=== PATIENT | male | born 1965 | race Caucasian/White ===

== ENCOUNTER 2016-12-25 17:15 | Emergency (ER) | payer SELFPAY ==
[~2016-12-25] VITALS: Ht 185.4 cm; Wt 70.0 kg
[~2016-12-25 17:15] MED LIST: ROBITUSSIN AC10 ML PO; ZITHROMAX250 MG PO
[2016-12-25] MEDS ORDERED: PERCOCET 5/325M1 TAB PO (17:32)
[2016-12-25] MEDS ORDERED: MOTRIN800 MG PO (17:32)
[2016-12-25] MEDS ORDERED: ZOFRAN ODT4 MG PO (17:32)
[2016-12-25] MEDS ORDERED: PENICILLN VK500 MG PO (17:32)
[2016-12-25 17:52] VITALS: BP 126/70
== END 2016-12-25 17:55 | disposition home or self-care (01) | DRG 159 ==
LOC: ED 17:15
DX: K02.9 Dental caries, unspecified (principal); F17.210 Nicotine dependence, cigarettes, uncomplicated

== ENCOUNTER 2018-03-07 09:24 | Emergency (ER) | payer BC ==
[~2018-03-07] VITALS: Ht 185.4 cm; Wt 77.0 kg
[~2018-03-07 09:24] MED LIST changes: +MOTRIN800 MG PO; +PENICILLN VK500 MG PO; +PERCOCET 5/325M1 TAB PO; +ZOFRAN ODT4 MG PO
[2018-03-07] MEDS ORDERED: ASPERCREME LIDOCA41 TOP (09:59)
[2018-03-07] MEDS ORDERED: MOTRIN400 MG PO (09:59)
[2018-03-07] MEDS ORDERED: VOLTAREN1%GEL TOP (09:59)
[2018-03-07 10:01] VITALS: BP 111/70
== END 2018-03-07 10:05 | disposition home or self-care (01) | DRG 552 ==
LOC: ED 09:24
DX: M62.830 Muscle spasm of back (principal); F17.210 Nicotine dependence, cigarettes, uncomplicated

== ENCOUNTER → 2018-03-24 | Outpatient (REF) | payer BC ==
[~2018-03-24] VITALS: Ht 185.4 cm; Wt 77.1 kg
[~2018-03-24] MED LIST changes: +ASPERCREME LIDOCA41 TOP; +MOTRIN400 MG PO; +VOLTAREN1%GEL TOP
[2018-03-24 09:42] VITALS: BP 104/65
== END | disposition home or self-care (01) | DRG 951 ==
LOC: PO 08:54 → ORM 09:15
PROVIDERS: ATTEND Internal Medicine Gastroenterology
DX: Z01.818 Encounter for other preprocedural examination (principal); Z12.11 Encounter for screening for malignant neoplasm of colon; Z98.890 Other specified postprocedural states; F17.210 Nicotine dependence, cigarettes, uncomplicated; Z97.2 Presence of dental prosthetic device (complete) (partial)

== ENCOUNTER 2018-03-25 09:47 | Day surgery (SDC) | payer BC ==
[2018-03-25 12:05] VITALS: BP 90/69
== END 2018-03-25 12:15 | disposition home or self-care (01) | DRG 951 ==
LOC: ENDO 09:47
PROVIDERS: ATTEND Internal Medicine Gastroenterology
PROC: 0DBP8ZX Excision of Rectum, Via Natural or Artificial Opening Endoscopic, Diagnostic (ICD-10-PCS; principal; 2018-03-25)
PROC: 0DBL8ZX Excision of Transverse Colon, Via Natural or Artificial Opening Endoscopic, Diagnostic (ICD-10-PCS; 2018-03-25)
PROC: 0DBN8ZX Excision of Sigmoid Colon, Via Natural or Artificial Opening Endoscopic, Diagnostic (ICD-10-PCS; 2018-03-25)
DX: Z12.11 Encounter for screening for malignant neoplasm of colon (principal); D12.5 Benign neoplasm of sigmoid colon; D12.3 Benign neoplasm of transverse colon; D12.8 Benign neoplasm of rectum; K64.4 Residual hemorrhoidal skin tags; K64.8 Other hemorrhoids; K21.9 Gastro-esophageal reflux disease without esophagitis

== ENCOUNTER 2018-05-20 08:42 | Day surgery (SDC) | payer BC ==
[~2018-05-20] VITALS: Ht 185.4 cm; Wt 78.9 kg
[2018-05-20 12:11] VITALS: BP 112/66
== END 2018-05-20 12:18 | disposition home or self-care (01) | DRG 384 ==
LOC: ENDO 08:42 → ORM 11:45 → ENDO 11:45
PROVIDERS: ATTEND Internal Medicine Gastroenterology
PROC: 0DB48ZX Excision of Esophagogastric Junction, Via Natural or Artificial Opening Endoscopic, Diagnostic (ICD-10-PCS; principal; 2018-05-20)
PROC: 0DB78ZX Excision of Stomach, Pylorus, Via Natural or Artificial Opening Endoscopic, Diagnostic (ICD-10-PCS; 2018-05-20)
PROC: 0DB58ZX Excision of Esophagus, Via Natural or Artificial Opening Endoscopic, Diagnostic (ICD-10-PCS; 2018-05-20)
DX: K25.9 Gastric ulcer, unspecified as acute or chronic, without hemorrhage or perforation (principal); K21.9 Gastro-esophageal reflux disease without esophagitis; K22.8 Other specified diseases of esophagus; K29.70 Gastritis, unspecified, without bleeding; Q40.2 Other specified congenital malformations of stomach; F17.200 Nicotine dependence, unspecified, uncomplicated; K64.8 Other hemorrhoids; Z79.899 Other long term (current) drug therapy; Z86.010 Personal history of colon polyps

== ENCOUNTER → 2018-08-23 | Outpatient (REF) | payer BC | END | disposition home or self-care (01) | DRG 552 | LOC: DI 08:33 | PROVIDERS: ATTEND Internal Medicine | DX: M48.061 Spinal stenosis, lumbar region without neurogenic claudication (principal) ==

== ENCOUNTER 2023-08-14 14:37 | Emergency (ER) | payer OTHER ==
[~2023-08-14] VITALS: Ht 185.4 cm; Wt 82.1 kg
[2023-08-14] MEDS ORDERED: PAXLOVID PO (15:05)
[2023-08-14] MEDS ORDERED: KETOROLAC TROMETHAMINE 30 MG/ML SDV IV ONE (15:45)
[2023-08-14] MEDS ORDERED: SODIUM CHLORIDE 0.9% 1,000 ML IV ONE (15:45)
[2023-08-14 16:09] LABS: URINE BILIRUBIN - DIPSTICK Negative (NEGATIVE); URINE BLOOD DIPSTICK Trace-intact (NEGATIVE); URINE COLOR Orange; URINE GLUCOSE - DIPSTICK 100 mg/dL (NEGATIVE); URINE KETONE Negative (NEGATIVE); URINE LEUK ESTERASE Negative (NEGATIVE); URINE NITRITE - DIPSTICK Positive (Negative); URINE PROTEIN - DIPSTICK 30 mg/dL (NEG-TRACE)
[2023-08-14 16:09] LABS: BASO% 0.2 % (0-3); HEMATOCRIT 42.5 % (39.0-50.0); HEMOGLOBIN 14.2 g/dl (14.0-18.0); IMMATURE GRANULOCYTES 0.7 % (0.0-5.0); LYMPH% 26.4 % (15-41); MEAN CELL VOLUME 93.4 fL CALC (80.0-100.0); MEAN CORPUSCULAR HGB 31.2 pG CALC (26.0-32.0); MEAN CORPUSCULAR HGB CONC 33.4 g/dL CAL (32.0-36.0); MONO% 8.6 % (2-13); NEUT# 5.47 thou/uL (1.82-7.42); NEUT% 63.1 % (42-76); RED BLOOD COUNT 4.55 mill/uL (4.70-6.10); RED CELL DISTRI WIDTH 12.8 % (11.5-15.5)
[2023-08-14 16:15] LABS: URINE MUCUS RARE hpf (NONE-FEW); URINE RBC 0-2 RBC/hpf (0-5); URINE WBC 0-2 WBC/hpf (0-5)
[2023-08-14 16:30] LABS: ALBUMIN 4.3 g/dL (3.2-5.0); ALKALINE PHOSPHATASE 51 u/l (38-126); ANION GAP 10 (6-22 (CALC)); BILIRUBIN, TOTAL 0.4 mg/dL (0.2-1.3); BUN 14 mg/dL (9-20); BUN/CREATININE RATIO 12 (12-20 (CALC)); CARBON DIOXIDE 26 mmol/l (22-30); CHLORIDE 107 mmol/l (95-108); CREATININE 1.2 mg/dL (0.7-1.3); GFR FOR AFR.AMER. > 60 ML/MIN (>=60 (CALC)); GFR OTHER RACES > 60 ML/MIN (>=60 (CALC)); LIPASE 106 u/l (23-300); POTASSIUM 4.1 mmol/l (3.5-5.1); SGOT/AST 23 u/l (17-59); SODIUM 139 mmol/l (137-146); TOTAL PROTEIN 6.6 g/dL (6.3-8.2)
[2023-08-14] MEDS ORDERED: KEFLEX500 MG PO (18:31)
[2023-08-14] MEDS ORDERED: NAPROXEN500 MG PO (18:33)
[2023-08-14] MEDS ORDERED: METHOCARBAMOL500 MG PO (18:33)
[2023-08-14 18:48] VITALS: BP 101/66
== END 2023-08-14 18:58 | disposition home or self-care (01) | DRG 690 ==
LOC: ED 14:37
PROVIDERS: Nurse Practitioner
DX: N39.0 Urinary tract infection, site not specified (principal); F17.210 Nicotine dependence, cigarettes, uncomplicated

== ENCOUNTER 2023-12-19 17:04 | Emergency (ER) | payer OTHER ==
[2023-12-19] VITALS (14 sets, daily range): BP systolic 103–113; BP diastolic 66–76
[~2023-12-19] VITALS: Ht 185.4 cm; Wt 82.0 kg
[~2023-12-19 17:04] MED LIST changes: +KEFLEX500 MG PO; +METHOCARBAMOL500 MG PO; +NAPROXEN500 MG PO; +PAXLOVID PO
[2023-12-19] MEDS ORDERED: KETOROLAC TROMETHAMINE 30 MG/ML SDV IV ONE (17:30)
[2023-12-19] MEDS ORDERED: MORPHINE SULFATE 4 MG/ML VIAL IV ONE (17:30)
[2023-12-19] MEDS ORDERED: ONDANSETRON HCl 4 MG/2 ML SDV IV ONE (17:30)
[2023-12-19] MEDS ORDERED: CYCLOBENZAPRINE HCL 5 MG TAB PO ONE (19:10)
[2023-12-19] MEDS ORDERED: ACETAMINOPHEN 500 MG TAB PO ONE (19:10)
[2023-12-19] MEDS ORDERED: VOLTAREN - GENE75 MG PO (20:08)
[2023-12-19] MEDS ORDERED: TRAMADOL HCL50 MG PO (20:08)
[2023-12-19] MEDS ORDERED: DICLOFENAC SODIUM 75 MG/TAB PO ONE (20:10)
[2023-12-19] MEDS ORDERED: oxyCODONE HCL ER 10 MG/TAB PO ONE (20:10)
== END 2023-12-19 20:42 | disposition home or self-care (01) | DRG 563 ==
LOC: ED 17:04
DX: S39.012A Strain of muscle, fascia and tendon of lower back, initial encounter (principal); M48.00 Spinal stenosis, site unspecified; F17.200 Nicotine dependence, unspecified, uncomplicated; X50.0XXA Overexertion from strenuous movement or load, initial encounter; Y93.89 Activity, other specified; Y99.0 Civilian activity done for income or pay